=== PATIENT | male | born 1970 | race Caucasian/White ===

== ENCOUNTER 2024-11-10 06:08 | Day surgery (SDC) | payer OTHER ==
[2024-11-04 07:19] LABS: BASO % 0.5 % (0.1-1.2); EOS # 0.24 (0.04-0.54); EOS % 2.9 % (0.7-7.0); HEMOGLOBIN 14.6 g/dL (13.7-17.5); LYMPH # 2.03 (1.18-3.74); LYMPH % 24.9 % (19.3-53.1); MEAN CORPUSCULAR HEMOGLOBIN 30.4 pg (25.6-32.2); MONO # 0.64 (0.24-0.82); MONO % 7.9 % (4.7-12.5); NEUT # 5.17 (1.56-6.13); NEUT % 63.6 % (34.0-71.1); PLATELET COUNT 227 K/uL (163-369); RED CELL DISTRIBUTION WIDTH 12.3 % (11.6-14.4)
[2024-11-04 07:24] LABS: PH,URINE 5.5 (5.0-8.0); URINE APPEARANCE Clear; URINE BILIRRUBIN Negative (NEGATIVE); URINE BLOOD Small; URINE COLOR Yellow; URINE GLUCOSE Negative (NEGATIVE); URINE KETONE Negative (NEGATIVE); URINE LEUKOCYTE Negative; URINE NITRATE Negative; URINE PROTEIN Negative (NEGATIVE); URINE UROBILINOGEN 0.2 E.U./dl
[2024-11-04 07:27] LABS: URINE BACTERIA 7.3 uL (0.0-1933); URINE RBC 11.6 uL (0.0-20.8); URINE WBC 2.8 uL (0.0-23.2)
[2024-11-04 07:30] LABS: URINE EPITHELIAL CELLS 0.9 uL (0.0-38.8)
[2024-11-04 07:38] VITALS: BP 117/82
[2024-11-04 07:39] LABS: INR 0.98; PARTIAL THROMBOPLASTIN TIME 29.6 SECONDS (22.0-34.0); PROTHROMBIN TIME 10.7 SECONDS (9.0-11.5)
[2024-11-04 08:12] LABS: ALBUMIN 4.1 gm/dL (3.4-5.0); BILIRUBIN TOTAL 0.42 mg/dL (0.3-1.2); CALCIUM 9.1 mg/dL (8.5-10.1); CREATININE SERUM 1.04 mg/dL (0.70-1.30); GFR 73.87; POTASSIUM 4.3 mEq/L (3.5-5.1); TOTAL PROTEIN 7.1 gm/dL (6.4-8.2); TSH 2.36 uIU/mL (0.358-3.74)
[~2024-11-10] VITALS: Ht 185.4 cm; Wt 88.5 kg
[~2024-11-10 06:08] MED LIST: ECOTRIN81 MG PO; FOLIC ACID20 MG; LIPITOR40 M1; SYNTHROID150 MCG PO; TAMS0.4C PO
[2024-11-10] MEDS ORDERED: CEFAZOLIN SODIUM 1,000 MG VIAL ONE ×2 (07:43→14:04)
[2024-11-10] MEDS ORDERED: CEFAZOLIN SODIUM 1,000 MG VIAL IV ONE (11:30)
[2024-11-10] MEDS ORDERED: CEFAZOLIN SODIUM 1,000 MG VIAL IV SCH (13:00)
[2024-11-10] MEDS ORDERED: FAMOTIDINE/PF 20 MG/10 ML SYRINGE IV SCH (13:00)
[2024-11-10] MEDS ORDERED: FAMOTIDINE/PF 20 MG/2 ML VIAL ONE (14:04)
[2024-11-10] MEDS ORDERED: MORPHINE SULFATE 4 MG/ML CARTRIDGE IV ONE (14:30)
== END 2024-11-10 16:10 | disposition home or self-care (01) ==
LOC: CIR.AMB 06:08
PROVIDERS: ATTEND Specialist
DX: K40.90 Unilateral inguinal hernia, without obstruction or gangrene, not specified as recurrent (principal)